=== PATIENT | female | born 2000 | race Caucasian/White ===

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

== ENCOUNTER 2023-10-16 14:34 | Outpatient (CLI) | payer OTHER, SELFPAY ==
--- NOTE | ~2023-10-16 | XR_ITS ---
EXAMINATION: XR scoliosis survey DATE: 10/16/2023 14:51 INDICATION: Scoliosis TECHNIQUE: Standing AP and lateral views of the thoracic and lumbar spine were obtained on overlappin g cephalad and caudal images. COMPARISON: 11/12/2014 FINDINGS: 20 degree dextroscoliosis measured between T7 and T12. 45 degree rotatory levoscoliosis measured betw een T12 and L4. Normal sagittal alignment of the thoracic spine with slight reversal of the normal lo rdosis at L2-L3. There is a posterior spinal fusion with bilateral vertical kalyani and pedicle screw fix ation extending from T11 through L3. Vertebral body heights are normal. Mild left-sided disc height l oss at a few levels in the lower thoracic spine. Moderate right-sided predominant disc height loss at L2-L3. Mild right-sided disc height loss at T12-L1, L1-L2 and L3-L4 and mild left-sided disc height loss at L4-L5 and L5-S1. Visualized portion of the lungs are clear with no pleural effusion or pneumo thorax. Heart size is normal. Lead shielding over the bilateral breasts. Normal bowel gas pattern. IMPRESSION: 1. Slight improvement in an S-shaped thoracolumbar scoliosis with 20 degree thoracic dextro scoliosis and 45 degrees rotatory lumbar levoscoliosis. 2. Instrumented T11-L3 posterior spinal fusion. Reviewed, dictated and finalized at location A. IMPRESSION: 1. Slight improvement in an S-shaped thoracolumbar scoliosis with 20 degree tho racic dextro scoliosis and 45 degrees rotatory lumbar levoscoliosis. 2. Instrumented T11-L3 posterior spinal fusion.
== END 2023-10-16 14:35 ==
LOC: MICIMG 14:36
PROVIDERS: PCP Family Medicine; Visit Provider Family Medicine
DX: M41.85 Other forms of scoliosis, thoracolumbar region (principal); M41.84 Other forms of scoliosis, thoracic region; M41.86 Other forms of scoliosis, lumbar region; Z98.1 Arthrodesis status
CPT/HCPCS: 72082